=== PATIENT | male | born 1995 | race American Indian/Alaskan Native ===

== ENCOUNTER 2018-11-01 13:44 | Emergency (ER) | payer SELFPAY ==
[2018-11-01 13:52] VITALS: BP 148/88
[2018-11-01] MEDS ORDERED: IBUPROFEN PO ONE (13:54)
--- NOTE | 2018-11-01 13:54 | Emergency Department Report ---
Blank Doc - Documentation Documentation: This is a 23-year-old male that presents with URI symptoms and fever. This initial assessment/diagnostic orders/clinical plan/treatment(s) is/are subject to change based on patient's health status, clinical progression and re- assessment by fellow clinical providers in the ED. Further treatment and workup at subsequent clinical providers discretion. Patient/guardians urged not to elope from the ED as their condition may be serious if not clinically assessed and managed. Initial orders include: 1- Patient sent to [facility] for further evaluation and treatment 2- CXR 3- Motrin for fever
--- NOTE | 2018-11-01 14:31 | XRay Report ---
ROUTINE CHEST, TWO VIEWS: HISTORY: Cough. The trachea, heart, mediastinal contour, lung jones and bony thorax are unremarkable. IMPRESSION: Unremarkable chest x-ray.
--- NOTE | 2018-11-01 14:31 | Emergency Department Report ---
HPI - General Chief Complaint: Upper Respiratory Infection Time Seen by Provider: 11/01/18 13:53 - HPI HPI: 23-year-old -[place] male presents to the emergency department with complaint of a 24-hour history of subjective fever, sore throat, cough, head and chest congestion. The patient took some Aleve last night and drank some hans tea but he did not get much relief. The patient presents saying "I think I have pneumonia." He denies any tobacco or illicit drug use. No recent travel or sick contacts at home. He does not have a primary care physician. ED Past Medical Hx - Past Medical History Previous Medical History?: No - Surgical History Past Surgical History?: No - Social History Smoking Status: Never Smoker - Medications Home Medications: Home Medications Medication Instructions Recorded Confirmed Last Taken Type Fluticasone [Flonase] 1 spray NS QDAY #1 bottle 11/01/18 Unknown Rx Loratadine/Pseudoephedrine 1 tab PO DAILY #7 tablet 11/01/18 Unknown Rx [Claritin-D 24Hr] guaiFENesin/CODEINE [Robitussin AC] 5 ml PO Q6H PRN #100 oral.liqd 11/01/18 Unknown Rx ED Review of Systems ROS: Stated complaint: COLD SX Other details as noted in HPI Comment: All other systems reviewed and negative Constitutional: chills, fever Eyes: denies: eye pain, vision change ENT: throat pain, congestion. denies: ear pain Respiratory: cough, shortness of breath Cardiovascular: denies: chest pain, palpitations Gastrointestinal: denies: abdominal pain, vomiting Genitourinary: denies: dysuria, discharge Musculoskeletal: denies: back pain, arthralgia Skin: denies: rash, lesions Neurological: denies: headache, weakness Physical Exam - Physical Exam Vital Signs: Vital Signs 11/01/18 13:52 Temperature 100.5 F H Pulse Rate 84 Respiratory 16 Rate Blood Pressure 148/88 O2 Sat by Pulse 98 Oximetry Physical Exam: GENERAL: The patient is well-developed well-nourished. HENT: Normocephalic. Atraumatic. Patient has moist mucous membranes. Oropharynx is clear without tonsillar hypertrophy, erythema or exudates. EYES: Extraocular motions are intact. Pupils equal reactive to light bilaterally. NECK: Supple. Trachea is midline. CHEST/LUNGS: Clear to auscultation. No cough heard during examination. No tachypnea or accessory muscle use. There is no respiratory distress noted. HEART/CARDIOVASCULAR: Regular. There is no tachycardia. There is no murmur. ABDOMEN: Abdomen is soft, nontender. Patient has normal bowel sounds. SKIN: Skin is warm and dry. NEURO: The patient is awake, alert, and oriented. The patient is cooperative. The patient has no focal neurologic deficits. The patient has normal speech. MUSCULOSKELETAL: There is no tenderness or deformity. There is no evidence of acute injury. ED Course Vital Signs 11/01/18 13:52 Temperature 100.5 F H Pulse Rate 84 Respiratory 16 Rate Blood Pressure 148/88 O2 Sat by Pulse 98 Oximetry ED Medical Decision Making - Radiology Data Radiology results: image reviewed - Medical Decision Making Patient presents to the emergency Department with complaints of cough, congestion, sore throat, fever and chills. He does present with a low-grade fever of 100.5F. Chest x-ray does not show any pneumonia, pleural effusions or any other acute process. The rest of examination is benign and does not show any etiology of the patient's fever. He appears most consistent with a viral URI. He will be placed on Claritin-D, Flonase and Robitussin-AC. We discussed using NSAIDs and Tylenol as needed for fever and discomfort. He will follow up with primary care and will return to the ER with any worsening of his symptoms or any acute distress. - Differential Diagnosis pneumonia, viral URI, bronchitis, strep pharyngitis Critical Care Time: No Critical care attestation.: If time is entered above; I have spent that time in minutes in the direct care of this critically ill patient, excluding procedure time. ED Disposition Clinical Impression: Viral syndrome Upper respiratory infection Qualifiers: URI type: unspecified URI Qualified Code(s): J06.9 - Acute upper respiratory infection, unspecified Fever Qualifiers: Fever type: unspecified Qualified Code(s): R50.9 - Fever, unspecified Disposition: DC-01 TO HOME OR SELFCARE Is pt being admited?: No Condition: Stable Instructions: Fever in Adults (ED), Upper Respiratory Infection (ED), Cold Symptoms (ED) Additional Instructions: Please follow up with a primary care physician in the next few days. Return to the emergency Department with any worsening of her symptoms or any acute distress. You can take Tylenol every 4 hours and ibuprofen every 6 hours, using weight- based dosing on the back of the bottle, as needed for fever or discomfort.. You have been prescribed a medication that is sedating and therefore should not be taken prior to driving, working, and responsible for children and in no way should be mixed with alcohol of any quantity. Prescriptions: Loratadine/Pseudoephedrine [Claritin-D 24Hr] 1 tab PO DAILY #7 tablet Fluticasone [Flonase] 1 spray NS QDAY #1 bottle guaiFENesin/CODEINE [Robitussin AC] 5 ml PO Q6H PRN #100 oral.liqd PRN Reason: Cough Referrals: VAMSHI HERNANDEZ MD [Staff Physician] - 2-3 Days [facility] [Outside] - 2-3 Days Time of Disposition: 14:36
== END 2018-11-01 15:05 | disposition home or self-care (01) ==
LOC: ED 13:44
DX: B34.9 Viral infection, unspecified (principal); J06.9 Acute upper respiratory infection, unspecified
CPT/HCPCS: 71046